=== PATIENT | male | born 1970 | race Caucasian/White ===

== ENCOUNTER 2022-03-31 16:16 | Emergency (ER) | payer BC ==
[2022-03-31] MEDS: Dexamethasone 4 MG/ML SDV IVPUSH ONE (16:32)
[2022-03-31] MEDS: Sodium Chloride 0.9% 10 ML Syringe FLUSH PRN (16:34)
[2022-03-31] MEDS ORDERED: HYDROmorphone 1 MG/ML Syringe IVPUSH ONE (17:19)
[2022-03-31] MEDS: Ketorolac 30 MG/ML SDV IVPUSH ONE (18:00)
== END 2022-03-31 18:11 | disposition home or self-care (01) ==
LOC: DL.ED 16:16
DX: M62.830 Muscle spasm of back (principal); M54.16 Radiculopathy, lumbar region
CPT/HCPCS: 72131; 96374; 96375; 99283-25; J1100; J1885; J3360; J3490

== ENCOUNTER 2022-04-07 15:56 | Emergency (ER) | payer BC ==
[2022-04-07] MEDS ORDERED: Sodium Chloride 0.9% 10 ML Syringe FLUSH PRN (16:06)
[2022-04-07 16:43] LABS: PTT,PARTIAL THROMBOPLSTIN TIME 21.6 SEC (22.0-34.0)
[2022-04-07 16:48] LABS: ANION GAP 14.1 mEq/L (7-13); CHLORIDE,CL 98 mmol/L (98-107); SODIUM,NA 134 mmol/L (136-145)
[2022-04-07 16:53] LABS: ESTIMATED GFR 56 mL/min (>=60)
[2022-04-07 17:04] LABS: AMPHETAMINES,URINE NEGATIVE (NEGATIVE); BARBITURATES,URINE NEGATIVE (NEGATIVE); BENZODIAZEPINE,URINE POSITIVE (NEGATIVE); MDMA (ECSTASY), URINE NEGATIVE (NEGATIVE); METHADONE,URINE NEGATIVE (NEGATIVE); METHAMPHETAMINES,URINE NEGATIVE (NEGATIVE); OPIATES,URINE NEGATIVE (NEGATIVE); OXYCODONE,URINE NEGATIVE (NEGATIVE); PHENCYCLIDINE,URINE NEGATIVE (NEGATIVE); TCA,URINE POSITIVE (NEGATIVE)
== END 2022-04-07 18:20 ==
LOC: DL.ED 15:56
DX: T58.94XA Toxic effect of carbon monoxide from unspecified source, undetermined, initial encounter (principal)
CPT/HCPCS: 36415; 70450; 71045; 72125; 80053; 80143; 80179; 80305; 80307; 81003; 82375; 83605; 84484; 85025; 85610; 85730; 86140; 93005; 99285; J3490